=== PATIENT | female | born 1980 | race Caucasian/White ===

== ENCOUNTER 2021-07-12 20:29 | Emergency (ER) | payer OTHER ==
[~2021-07-12] VITALS: Ht 170.2 cm; Wt 104.5 kg
[2021-07-12 21:25] VITALS: BP 132/76
--- NOTE | 2021-07-12 22:00 | PHYS DOC ---
General Adult EDM: Chief Complaint: MECHANICAL FALL HPI: HPI: Patient is a 41 year old female who presents the ED today complaining of mild intermittent right knee pain, right torres pain and right ankle pain, symptoms began today after she slipped, on a rug at work and fell landing on her knee. Patient denies any loss of consciousness. Reports most of the pain is on weightbearing to the right lower extremity. States sitting still is relieving some of the pain Review of Systems: Review of Systems: Constitutional: Denies fever or chills. [][] Musculoskeletal: Reports right knee pain, right tib-fib pain, right ankle pain Integument: Denies rash. [] Neurologic: Denies headache, focal weakness or sensory changes. [] Psychiatric: Denies depression or anxiety. [] Heart Score: C/O Chest Pain: N/A Risk Factors: Risk Factors: DM, Current or recent (<one month) smoker, HTN, HLP, family history of CAD, obesity. Risk Scores: Score 0 - 3: 2.5% MACE over next 6 weeks - Discharge Home Score 4 - 6: 20.3% MACE over next 6 weeks - Admit for Clinical Observation Score 7 - 10: 72.7% MACE over next 6 weeks - Early Invasive Strategies Physical Exam: PE: Constitutional: Well developed, well nourished, no acute distress, non-toxic appearance. [] Skin: Warm, dry, no erythema, no rash. [] Back: No tenderness, no CVA tenderness. [] Extremities: Right lower extremity with no obvious deformity, tenderness on palpation of the right anterior knee and right lateral ankle, full range of motion to the right knee including negative Lexus sign, negative Alexus sign, negative anterior posterior drawer sign, full range of motion to the right ankle, full range of motion to the right foot and toes. +2 right pedal pulse. Cap refill less than 2 seconds the right toes. Neurologic: Alert and oriented X 3, normal motor function, normal sensory function, no focal deficits noted. [] Psychologic: Affect normal, judgement normal, mood normal. [] EKG: EKG: [] Radiology/Procedures: Radiology/Procedures: []PROCEDURE: TIBIA FIBULA RIGHT 4-view right knee, two-view right tibia-fibula and three-view right ankle dated 07/12/2021. COMPARISON: None. INDICATION: Pain after fall. FINDINGS: 4 views right knee show normal bony alignment. No displaced fracture. No periostitis or bone destruction. Mild tricompartmental hypertrophic change. No joint effusion or loose body. 2 views right tibia-fibula show normal bony alignment. No displaced fracture. No acute osseous or articular abnormality. 3 views the right ankle show normal bony alignment. No displaced fracture. Talar dome is intact. No acute osseous or articular abnormality. IMPRESSION: No acute findings. Mild degenerative changes. Electronically signed by: Antoine Serna MD (07/12/2021 10:11 PM) [facility] DICTATED and SIGNED BY: ANTOINE SERNA MD DATE: 07/12/21 [id number] 0 Course & Med Decision Making: Course & Med Decision Making Pertinent Labs and Imaging studies reviewed. (See chart for details) This a 41-year-old female patient presented to the ED today with right knee pain, right torres pain, right ankle pain, symptoms began today after she fell at work Right knee, right tib-fib, right ankle x-rays are negative for any acute findings. Naga bandage applied to the right ankle, right knee by me. Neurovascular exam done by me is normal. Ice elevation encouraged. Follow-up with orthopedic doctor in 1 week if pain persist. OTC pain relievers. Sam Disclaimer: Sam Disclaimer: This electronic medical record was generated, in whole or in part, using a voice recognition dictation system. Departure Departure Impression: Primary Impression: Contusion of right knee Qualified Codes: S80.01XA - Contusion of right knee, initial encounter Additional Impressions: Right ankle sprain Qualified Codes: S93.401A - Sprain of unspecified ligament of right ankle, initial encounter Pain in right torres Disposition: 01 HOME / SELF CARE / HOMELESS Condition: STABLE Referrals: NO PCP (PCP) JOURDAN THOMPSON Jr. DO follow up in one week if pain persists Patient Instructions: Ankle Sprain, Contusion, Knee Pain Additional Instructions: You were evaluated in the emergency room for right knee pain, right torres pain, right ankle pain, your x-rays of the right knee, right tib-fib, right ankle are negative for any acute findings. Wear the Naga bandage provided as tolerated and needed. Try to ice and elevate the extremity. Scripts Naproxen (NAPROXEN) 500 Mg Tablet 1 TAB PO BID for pain, #14 TAB 0 Refills Prov: LAURA GILMAN APRN 07/12/21 LAURA GILMAN APRN Jul 12, 2021 22:00
--- NOTE | 2021-07-12 22:13 | RAD ---
4-view right knee, two-view right tibia-fibula and three-view right ankle dated 07/12/2021. COMPARISON: None. INDICATION: Pain after fall. FINDINGS: 4 views right knee show normal bony alignment. No displaced fracture. No periostitis or bone destruct ion. Mild tricompartmental hypertrophic change. No joint effusion or loose body. 2 views right tibia-fibula show normal bony alignment. No displaced fracture. No acute osseous or art icular abnormality. 3 views the right ankle show normal bony alignment. No displaced fracture. Talar dome is intact. No a cute osseous or articular abnormality. IMPRESSION: No acute findings. Mild degenerative changes. Electronically signed by: Antoine Serna MD (07/12/2021 10:11 PM) [facility]
[2021-07-12] MEDS ORDERED: NAPR-514 PO (22:25)
== END 2021-07-12 22:45 | disposition home or self-care (01) ==
LOC: ER 20:29
DX: S93.401A Sprain of unspecified ligament of right ankle, initial encounter (principal); S80.01XA Contusion of right knee, initial encounter; M79.661 Pain in right lower leg; W18.39XA Other fall on same level, initial encounter; Y93.89 Activity, other specified; Y92.89 Other specified places as the place of occurrence of the external cause; Y99.8 Other external cause status
CPT/HCPCS: 73564; 73590; 73610; 99284; A6450